=== PATIENT | male | born 1945 | race Caucasian/White ===

== ENCOUNTER 2024-11-07 13:29 | Emergency (ER) | payer OTHER, MEDICARE ==
[2024-11-07 11:54] LABS: BASOPHILS PERCENT AUTO 0.1 % (0.0-1.0); EOSINOPHILS PERCENT AUTO 0.8 % (1.0-3.0); LYMPHOCYTES PERCENT AUTO 22.3 % (20.5-50.1); MONOCYTES PERCENT AUTO 12.8 % (2-8); NEUTROPHILS PERCENT AUTO 64.0 % (42.2-75.2); PLATELET COUNT,PLT 226 10^3/uL (150-450); RED BLOOD CELL COUNT 4.85 10^6/uL (4.6-6.2); WHITE BLOOD CELL COUNT,WBC 8.6 10^3/uL (5.0-10.0)
[2024-11-07 12:12] LABS: INR 1.0 (0.9-1.2); PTT,PARTIAL THROMBOPLSTIN TIME 23.4 SEC (22.0-34.0)
[2024-11-07 12:15] LABS: A/G RATIO 1.2; ALANINE AMINOTRANSFERASE,ALT 23 U/L (16-63); ASPARTATE AMNIOTRANSFERASE,AST 23 U/L (15-37); BILIRUBIN TOTAL 1.1 mg/dL (0.2-1.0); BLOOD UREA NITROGEN,BUN 15 mg/dL (7-18); CARBON DIOXIDE,CO2 25 mmol/L (21-32); CHLORIDE,CL 106 mmol/L (98-107); CREATININE 1.20 mg/dL (0.70-1.30); ESTIMATED GFR 63 mL/min (>=60); GLUCOSE RANDOM 92 mg/dL (70-99); POTASSIUM,K 3.8 mmol/L (3.5-5.1); PROTEIN TOTAL,TP 6.9 g/dL (6.4-8.2); SODIUM,NA 139 mmol/L (136-145)
== END 2024-11-07 13:53 | disposition home or self-care (01) ==
LOC: DL.ED 13:29
DX: S32.591A Other specified fracture of right pubis, initial encounter for closed fracture (principal); I25.10 Atherosclerotic heart disease of native coronary artery without angina pectoris; Z79.02 Long term (current) use of antithrombotics/antiplatelets; V28.09XA Other motorcycle driver injured in noncollision transport accident in nontraffic accident, initial encounter; Y93.89 Activity, other specified
CPT/HCPCS: 36415; 70450; 71045; 72125; 72170; 72192; 80053; 83605; 85025; 85610; 85730; 99283; 99285; A9270